=== PATIENT | female | born 1990 | race Hispanic/Latino ===

== ENCOUNTER 2017-03-30 09:39 | Emergency (ER) | payer MEDICAID, OTHER ==
[2017-03-30 10:08] LABS: APPEARANCE,URINE CLEAR (CLEAR); BILIRUBIN,URINE NEGATIVE (NEGATIVE); COLOR,URINE YELLOW (YELLOW); GLUCOSE, URINE (UA) 500 mg/dL (NEGATIVE); KETONES,URINE 5 mg/dL (NEGATIVE); LEUKOCYTE ESTERASE ,URINE NEGATIVE (NEGATIVE); NITRATE,URINE NEGATIVE (NEGATIVE); OCCULT BLOOD,URINE LARGE (NEGATIVE); PROTEIN,URINE 30 (NEGATIVE); UROBILINOGEN,URINE 0.2 mg/dL (0.2-1.0)
[2017-03-30 10:23] LABS: BACTERIA,URINE Few /HPF (None Seen); WBC,URINE 0-1 /HPF (0-1); YEAST,URINE BUDDING Few /HPF (None Seen)
[2017-03-30 10:24] LABS: MUCUS,URINE Rare LPF (None Seen); SQUAMOUS EPITHELIAL CELL,UR Few /LPF (0-2)
[2017-03-30 10:28] LABS: BASOPHILS % (AUTO) 0.5 % (0.0-5.0); EOSINOPHILS % (AUTO) 1.7 % (0.0-8.0); HEMATOCRIT 37.6 % (36-48); LYMPHOCYTES % (AUTO) 18.1 % (21.0-51.0); MEAN CORPUSCULAR HEMOGLOBIN 29.2 pg (27.0-33.0); MEAN CORPUSCULAR HGB CONC 34.4 g/dL (32.0-36.0); MEAN CORPUSCULAR VOLUME 84.9 fL (79-99); NEUTROPHILS % (AUTO) 73.7 % (40.0-77.0); PLATELET COUNT (AUTO) 208 K/uL (130-400); RED BLOOD CELL COUNT(AUTO) 4.43 MIL/uL (4.00-5.50); RED CELL DISTRIBUTION WIDTH 13.9 % (11.0-15.5); WHITE BLOOD COUNT (AUTO) 7.7 K/uL (4.8-10.8)
[2017-03-30 10:34] LABS: CREATININE 0.5 mg/dL (0.5-1.5); POTASSIUM 3.5 mmol/L (3.5-5.1)
[2017-03-30 10:39] LABS: ALBUMIN 2.8 g/dL (3.5-5.0); BILIRUBIN,TOTAL 0.3 mg/dL (0.2-1.0); TOTAL PROTEIN, SERUM 7.3 g/dL (6.0-8.3)
== END 2017-03-30 12:06 | disposition home or self-care (01) ==
LOC: EDH 09:39
DX: O20.9 Hemorrhage in early pregnancy, unspecified (principal); Z3A.13 13 weeks gestation of pregnancy
CPT/HCPCS: 36415; 76801; 80053; 81001; 84702; 85025

== ENCOUNTER 2018-07-10 01:14 | Emergency (ER) | payer MEDICAID, OTHER ==
[~2018-07-10 01:14] MED LIST: GLYB2.5 PO
[2018-07-10 01:27] LABS: APPEARANCE,URINE Clear (CLEAR); BILIRUBIN,URINE Negative (NEGATIVE); COLOR,URINE Yellow (YELLOW); GLUCOSE, URINE (UA) Negative (NEGATIVE); KETONES,URINE Negative (NEGATIVE); LEUKOCYTE ESTERASE ,URINE Small (NEGATIVE); NITRATE,URINE Negative (NEGATIVE); OCCULT BLOOD,URINE Large (NEGATIVE); PROTEIN,URINE POS 2+ mg/dL (NEGATIVE)
[2018-07-10 01:36] LABS: BACTERIA,URINE None Seen /HPF (None Seen); MUCUS,URINE Few LPF (None Seen); RBC,URINE 26-50 /HPF (0-1); SQUAMOUS EPITHELIAL CELL,UR Few /HPF (0-2)
[2018-07-10 01:56] LABS: BASOPHILS % (AUTO) 0.4 % (0.0-5.0); EOSINOPHILS % (AUTO) 2.1 % (0.0-8.0); HEMATOCRIT 40.1 % (36-48); LYMPHOCYTES % (AUTO) 12.4 % (21.0-51.0); MEAN CORPUSCULAR HEMOGLOBIN 27.4 pg (27.0-33.0); MEAN CORPUSCULAR HGB CONC 33.4 g/dL (32.0-36.0); MONOCYTES % (AUTO) 4.6 % (3.0-13.0); NEUTROPHILS % (AUTO) 80.5 % (40.0-77.0); PLATELET COUNT (AUTO) 224 K/uL (130-400); RED BLOOD CELL COUNT(AUTO) 4.89 MIL/uL (4.00-5.50); RED CELL DISTRIBUTION WIDTH 14.4 % (11.0-15.5); WHITE BLOOD COUNT (AUTO) 8.4 K/uL (4.8-10.8)
[2018-07-10 02:08] LABS: CREATININE 0.6 mg/dL (0.5-1.5); POTASSIUM 3.5 mmol/L (3.5-5.1)
[2018-07-10 02:12] LABS: ALBUMIN 3.5 g/dL (3.5-5.0); BILIRUBIN,TOTAL 0.8 mg/dL (0.2-1.0); TOTAL PROTEIN, SERUM 7.3 g/dL (6.0-8.3)
== END 2018-07-10 04:39 | disposition home or self-care (01) ==
LOC: EDH 01:14
DX: K80.80 Other cholelithiasis without obstruction (principal)
CPT/HCPCS: 36415; 71045; 76705; 80053; 81001; 81025; 82150; 82550; 83690; 84484; 85025; 93005

== ENCOUNTER 2020-10-03 07:17 | Observation (INO) | payer MEDICAID ==
[~2020-10-03] VITALS: Ht 152.4 cm; Wt 117.9 kg
[~2020-10-03 07:17] MED LIST changes: -GLYB2.5 PO; +GLYB2.5T6 PO
[2020-10-03 07:47] VITALS: BP 97/47
== END 2020-10-03 09:00 | disposition home or self-care (01) ==
LOC: LDH 07:17
PROVIDERS: ADMIT Specialist; ATTEND Specialist
DX: O24.419 Gestational diabetes mellitus in pregnancy, unspecified control (principal); Z3A.32 32 weeks gestation of pregnancy
CPT/HCPCS: 59025; 76819; G0378

== ENCOUNTER 2020-10-06 08:19 | Observation (INO) | payer MEDICAID | END 2020-10-06 10:53 | disposition home or self-care (01) | LOC: LDH 08:55 | PROVIDERS: ADMIT Specialist; ATTEND Specialist | DX: O24.410 Gestational diabetes mellitus in pregnancy, diet controlled (principal); Z3A.32 32 weeks gestation of pregnancy | CPT/HCPCS: 59025; 76819; G0378 ×2 ==

== ENCOUNTER 2020-11-22 05:44 | Inpatient (IN) | payer MEDICAID ==
[2020-11-22] VITALS (20 sets, daily range): BP systolic 93–151; BP diastolic 50–97
[~2020-11-22] VITALS: Ht 152.4 cm; Wt 123.4 kg
[2020-11-22] MEDS ORDERED: CITRIC ACID/SODIUM CITRATE 30 ML UDCUP PO PRN (06:00)
[2020-11-22] MEDS ORDERED: LACTATED RINGERS 1000ML 1,000 ML IV SCH (06:00)
[2020-11-22] MEDS ORDERED: CEFAZOLIN SODIUM 1 GM VIAL IVP PRN ×2 (06:00→06:30)
[2020-11-22 07:04] LABS: HEMATOCRIT 32.9 % (36-48); MEAN CORPUSCULAR HEMOGLOBIN 24.3 pg (27.0-33.0); MEAN CORPUSCULAR HGB CONC 31.6 g/dL (32.0-36.0); MEAN CORPUSCULAR VOLUME 76.9 fL (79-99); PLATELET COUNT (AUTO) 245 K/uL (130-400); RED BLOOD CELL COUNT(AUTO) 4.28 MIL/uL (4.00-5.50); RED CELL DISTRIBUTION WIDTH 15.8 % (11.0-15.5); WHITE BLOOD COUNT (AUTO) 7.1 K/uL (4.8-10.8)
[2020-11-22] MEDS ORDERED: MORPHINE PF 100MG/10ML AMP IV ONE (07:32)
[2020-11-22] MEDS ORDERED: FENTANYL CITRATE PF 50 MCG/1 ML 2ML VIAL ONE (07:33)
[2020-11-22] MEDS ORDERED: CEFAZOLIN SODIUM 1 GM VIAL IVP ONE (08:00)
[2020-11-22] MEDS ORDERED: ONDANSETRON 4MG INJ ONE (08:32)
[2020-11-22] MEDS ORDERED: PHENYLEPHRINE HCL 10 MG/ML 1ML VIAL IV ONE (08:48)
[2020-11-22] MEDS ORDERED: 0.9%NACL 10ML VIAL IVP PRN (09:00)
[2020-11-22] MEDS ORDERED: OXYTOCIN-LR 20 UNITS/1000 ML 1,000 ML IV PRN (09:00)
[2020-11-22] MEDS ORDERED: MEPERIDINE-PF 75 MG/ML SYG IM PRN (09:00)
[2020-11-22] MEDS ORDERED: PROMETHAZINE HCL 25 MG/ML 1ML AMPULE IM PRN (09:00)
[2020-11-22] MEDS ORDERED: DEXTROSE 5 %-0.45 % NACL 1,000 ML IV PRN (09:00)
[2020-11-22] MEDS ORDERED: OXYTOCIN-LR 20 UNITS/1000 ML 1,000 ML IV ONE (09:04)
[2020-11-22] MEDS ORDERED: PREN1TAB80 PO (10:13)
[2020-11-23 05:39] VITALS: BP 116/82
[2020-11-23 07:16] LABS: HEPATITIS Bs ANTIGEN SCREEN P Negative (Negative)
[2020-11-23 07:35] LABS: HEMATOCRIT 28.7 % (36-48); MEAN CORPUSCULAR HEMOGLOBIN 24.2 pg (27.0-33.0); MEAN CORPUSCULAR HGB CONC 30.7 g/dL (32.0-36.0); MEAN CORPUSCULAR VOLUME 79.1 fL (79-99); RED BLOOD CELL COUNT(AUTO) 3.63 MIL/uL (4.00-5.50); RED CELL DISTRIBUTION WIDTH 15.9 % (11.0-15.5)
[2020-11-23 07:50] VITALS: BP 116/78
[2020-11-23] MEDS ORDERED: BISACODYL 10 MG SUPP.RECT RC PRN (10:00)
[2020-11-23] MEDS ORDERED: HYDROCODONE/ACETAMINOPHEN 5/325 MG TAB PO PRN (10:00)
[2020-11-23] MEDS ORDERED: ACETAMINOPHEN WITH CODEINE 1 TAB TAB PO PRN (10:00)
[2020-11-23] MEDS ORDERED: ACETAMINOPHEN 500 MG TABLET PO PRN (10:00)
[2020-11-23 11:12] VITALS: BP 108/57
[2020-11-23] MEDS: SIMETHICONE 80 MG TAB.CHEW PO PRN ×2 (12:15→21:21)
[2020-11-23] MEDS: IBUPROFEN 800 MG TAB PO SCH ×3 (12:15→21:23)
[2020-11-23 16:47] VITALS: BP 149/81
[2020-11-23 19:44] VITALS: BP 136/78
[2020-11-23] MEDS ORDERED: MEASLES/MUMPS/RUBELLA VACCINE, LIVE 0.5 ML/VIAL SQ ONE (21:00)
[2020-11-23] MEDS ORDERED: DIPH,PERTUSS(ACELL),TET VAC/PF 0.5 ML VIAL IM ONE (21:00)
[2020-11-23] MEDS: DOCUSATE SODIUM 100 MG CAP PO SCH (21:21)
[2020-11-23 23:12] VITALS: BP 131/83
[2020-11-24 03:44] VITALS: BP 124/78
[2020-11-24] MEDS: IBUPROFEN 800 MG TAB PO SCH (04:35)
[2020-11-24 07:15] VITALS: BP 142/63
[2020-11-24] MEDS: DOCUSATE SODIUM 100 MG CAP PO SCH (09:22)
[2020-11-24] MEDS: SIMETHICONE 80 MG TAB.CHEW PO PRN (09:22)
[2020-11-24 11:37] VITALS: BP 110/69
== END 2020-11-24 13:30 | disposition home or self-care (01) | DRG 540 ==
LOC: LDH 05:44 → WSH 09:50
PROVIDERS: ADMIT Specialist; ATTEND Specialist
PROC: 3E0234Z Introduction of Serum, Toxoid and Vaccine into Muscle, Percutaneous Approach (ICD-10-PCS; 2020-11-22)
PROC: 3E0134Z Introduction of Serum, Toxoid and Vaccine into Subcutaneous Tissue, Percutaneous Approach (ICD-10-PCS; 2020-11-22)
PROC: 10D00Z1 Extraction of Products of Conception, Low, Open Approach (ICD-10-PCS; principal; 2020-11-22 07:30)
DX: O34.211 Maternal care for low transverse scar from previous cesarean delivery (principal); O24.429 Gestational diabetes mellitus in childbirth, unspecified control; Z20.822 Contact with and (suspected) exposure to COVID-19; Z3A.39 39 weeks gestation of pregnancy; Z37.0 Single live birth; Z23 Encounter for immunization
CPT/HCPCS: 36415; 59510; 82947; 85027; 86592; 86701; 86850; 86900; 86901; 87340; 87390; 87635; 90707; 90715; A4344; G0378; J0690; J2274; J2370; J2405; J2590; J3010; J7120